=== PATIENT | male | born 1960 | race Caucasian/White ===

== ENCOUNTER 2016-08-12 12:42 | Emergency (ER) | payer MEDICAID ==
[~2016-08-12] VITALS: Ht 172.7 cm; Wt 60.0 kg
[2016-08-12 13:04] VITALS: BP 121/73
== END 2016-08-12 15:45 | disposition home or self-care (01) ==
LOC: ER 15:27
DX: M54.9 Dorsalgia, unspecified (principal); L40.9 Psoriasis, unspecified; G89.29 Other chronic pain
CPT/HCPCS: 99282

== ENCOUNTER 2018-06-19 17:17 | Emergency (ER) | payer MEDICAID | END 2018-06-19 18:30 | disposition left against medical advice (07) | LOC: ER 17:24 | DX: R68.89 Other general symptoms and signs (principal); Z53.21 Procedure and treatment not carried out due to patient leaving prior to being seen by health care provider ==